=== PATIENT | female | born 1995 | race American Indian/Alaskan Native ===

== ENCOUNTER 2016-12-15 20:47 | Emergency (ER) | payer MEDICAID ==
[2016-12-15] MEDS ORDERED: Sodium Chloride 0.9% 1,000 ML IV SCH (21:30)
[2016-12-15] MEDS ORDERED: Ondansetron 4 MG/2 ML SDV IV ONE (21:30)
--- NOTE | 2016-12-15 21:43 | EDM.PDOC ---
ED HPI GI/ABDOMINAL - General Chief Complaint: Abdominal Pain Stated Complaint: GALLBLADDER Time Seen by Provider: 12/15/16 21:00 Source of Information: Reports: Patient History Limitations: Reports: No limitations - History of Present Illness INITIAL COMMENTS - FREE TEXT/NARRATIVE: c/o lower abdominal pain since 4 pm, vomited x5. pain radiates through to low back. Timing/Duration: Reports: Hour(s): Location: flank Quality: Reports: stabbing, radiating Severity: moderate Associated Symptoms (-Female): Reports: back pain, nausea/vomiting. Denies: constipation, diarrhea, fever/chills, loss of appetite - Related Data Allergies/ADRs: Allergies Allergy/AdvReac Type Severity Reaction Status Date / Time No Known Allergies Allergy Verified 12/15/16 21:06 Home Meds: Home Meds Omeprazole 20 mg PO BID 05/21/16 [History] Ferrous Sulfate [Feosol] 325 mg PO DAILY 10/22/16 [History] Vits #93/Iron Fum/FA [ Formula Tablet] 1 tab PO DAILY 10/22/16 [History] Ranitidine [Zantac] 150 mg PO BID 10/22/16 [History] Past Medical History - Past Health History Medical/Surgical History: Denies Medical/Surgical History HEENT History: Reports: Impaired vision, Other (see below) Other HEENT History: WEARS CORRECTIVE LENS Cardiovascular History: Reports: None Respiratory History: Reports: None Gastrointestinal History: Reports: Cholelithiasis, Gastritis, GERD, Other (see below) Other Gastrointestinal History: Ulcer Genitourinary History: Reports: None 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: Musculoskeletal History: Reports: Back pain, chronic Neurological History: Reports: None Psychiatric History: Reports: Anxiety Endocrine/Metabolic History: Reports: None Hematologic History: Reports: Anemia Immunologic History: Reports: None Oncologic (Cancer) History: Reports: None Dermatologic History: Reports: None - Infectious Disease History Infectious Disease History: Reports: Chicken pox - Past Surgical History Head Surgeries/Procedures: Reports: None HEENT Surgical History: Reports: None Cardiovascular Surgical History: Reports: None Respiratory Surgical History: Reports: None GI Surgical History: Reports: None Female Surgical History: Reports: None Endocrine Surgical History: Reports: None Neurological Surgical History: Reports: None Musculoskeletal Surgical History: Reports: None Oncologic Surgical History: Reports: None Dermatological Surgical History: Reports: None Social & Family History - Family History Family Medical History: Noncontributory - Tobacco Use Smoking Status *Q: Never Smoker Second Hand Smoke Exposure: Yes - Caffeine Use Caffeine Use: Reports: Tea Other Caffeine Use: VITMAIN WATER 1 OCCASIONALLY - Alcohol Use Days Per Week of Alcohol Use: 0 - Recreational Drug Use Recreational Drug Use: No ED ROS GENERAL - Review of Systems Review Of Systems: See Below Constitutional: Denies: fever, chills HEENT: Reports: No symptoms Respiratory: Reports: No Symptoms Cardiovascular: Reports: No symptoms GI/Abdominal: Reports: Abdominal pain, Nausea, Vomiting. Denies: Distension : Reports: flank pain, incontinence. Denies: pain Musculoskeletal: Reports: no symptoms Skin: Reports: no symptoms Neurological: Reports: No Symptoms ED EXAM, GI/ABD - Physical Exam Exam: See Below Exam Limited By: No limitations General Appearance: alert, moderate distress Eyes: bilateral: EOMI Ears: normal external exam, normal TMs Nose: normal inspection Throat/Mouth: Normal inspection, Normal voice Head: atraumatic, normocephalic Neck: normal inspection, full range of motion Respiratory/Chest: no respiratory distress, lungs clear, normal breath sounds Cardiovascular: normal peripheral pulses, regular rate, rhythm GI/Abdominal: normal bowel sounds, soft, no distention, tenderness (generalized mid to low.). No: guarding, rebound, McBurney's sign, Ivy's sign Back Exam: CVA tenderness (L), CVA tenderness (R). No: vertebral tenderness Extremities: normal inspection Neurological: alert, oriented, normal cognition Psychiatric: normal affect Skin Exam: Warm, Dry, Intact Course - Vital Signs Last Recorded V/S: Last Vital Signs Temp 96 F 12/16/16 00:59 Pulse 70 12/16/16 00:59 Resp 18 12/16/16 00:59 BP 129/98 H 12/16/16 00:59 Pulse Ox 100 12/16/16 00:59 - Orders/Labs/Meds Labs: Laboratory Tests 12/15/16 12/15/16 12/15/16 Range/Units 21:07 21:07 21:07 WBC (5.0-10.0) 10^3/uL RBC (4.2-5.4) 10^6/uL Hgb (12.0-16.0) g/dL Hct (37.0-47.0) % MCV (80-100) fL MCH (27.0-34.0) pg MCHC (33.0-35.0) g/dL Plt Count (150-450) 10^3/uL Neut % (Auto) (42.2-75.2) % Lymph % (Auto) (20.5-50.1) % [place] % (Auto) (2-8) % Eos % (Auto) (1.0-3.0) % Baso % (Auto) (0.0-1.0) % Sodium (135-145) mmol/L Potassium (3.6-5.0) mmol/L Chloride (101-111) mmol/L Carbon Dioxide (21.0-31.0) mmol/L Anion Gap BUN (7-18) mg/dL Creatinine (0.6-1.3) mg/dL Est Cr Clr Drug Dosing mL/min Estimated GFR (MDRD) BUN/Creatinine Ratio Glucose (74-105) mg/dL Calcium (8.4-10.2) mg/dl Total Bilirubin (0.2-1.0) mg/dL AST (10-42) IU/L ALT (10-60) IU/L Alkaline Phosphatase (42-121) IU/L C-Reactive Protein (0.0-1.3) mg/dL Total Protein (6.7-8.2) g/dl Albumin (3.2-5.5) g/dl Globulin Albumin/Globulin Ratio Amylase (28-100) U/L Lipase (22-51) U/L Urine Color Yellow (YELLOW) Urine Appearance Clear (CLEAR) Urine pH 5.5 (5.0-9.0) Ur Specific [place] >= 1.030 (1.005-1.030) Urine Protein 100 H (NEGATIVE) Urine Glucose (UA) Negative (NEGATIVE) Urine Ketones Negative (NEGATIVE) Urine Occult Blood Moderate H (NEGATIVE) Urine Nitrite Negative (NEGATIVE) Urine Bilirubin Small H (NEGATIVE) Urine Urobilinogen 1.0 (0.2-1.0) mg/dL Ur Leukocyte Esterase Moderate H (NEGATIVE) Urine RBC 20-30 H /HPF Urine WBC >100 H (0-5/HPF) /HPF Ur Epithelial Cells Many H /HPF Urine Bacteria Many H (0-FEW/HPF) /HPF Urine Mucus Moderate H /LPF Urine HCG, Qual Negative Urine Opiates Screen Negative (NEGATIVE) Ur Oxycodone Screen Negative (NEGATIVE) Urine Methadone Screen Negative (NEGATIVE) Ur Barbiturates Screen Negative (NEGATIVE) U Tricyclic Antidepress Negative (NEGATIVE) Ur Phencyclidine Scrn Negative (NEGATIVE) Ur Amphetamine Screen Negative (NEGATIVE) U Methamphetamines Scrn Negative (NEGATIVE) Urine MDMA Screen Negative (NEGATIVE) U Benzodiazepines Scrn Negative (NEGATIVE) Urine Cocaine Screen Negative (NEGATIVE) U Marijuana (THC) Screen Negative (NEGATIVE) 12/15/16 12/15/16 12/15/16 Range/Units 21:24 21:24 21:24 WBC 11.0 H (5.0-10.0) 10^3/uL RBC 4.38 (4.2-5.4) 10^6/uL Hgb 11.5 L (12.0-16.0) g/dL Hct 35.8 L (37.0-47.0) % MCV 81.7 (80-100) fL MCH 26.3 L (27.0-34.0) pg MCHC 32.1 L (33.0-35.0) g/dL Plt Count 329 (150-450) 10^3/uL Neut % (Auto) 78.7 H (42.2-75.2) % Lymph % (Auto) 13.5 L (20.5-50.1) % [place] % (Auto) 7.7 (2-8) % Eos % (Auto) 0.0 L (1.0-3.0) % Baso % (Auto) 0.1 (0.0-1.0) % Sodium 136 (135-145) mmol/L Potassium 3.5 L (3.6-5.0) mmol/L Chloride 105 (101-111) mmol/L Carbon Dioxide 23.0 (21.0-31.0) mmol/L Anion Gap 11.5 BUN 13 (7-18) mg/dL Creatinine 0.6 (0.6-1.3) mg/dL Est Cr Clr Drug Dosing 127.00 mL/min Estimated GFR (MDRD) > 60 BUN/Creatinine Ratio 21.66 Glucose 102 (74-105) mg/dL Calcium 8.8 (8.4-10.2) mg/dl Total Bilirubin 0.4 (0.2-1.0) mg/dL AST 15 (10-42) IU/L ALT 14 (10-60) IU/L Alkaline Phosphatase 77 (42-121) IU/L C-Reactive Protein 1.4 H (0.0-1.3) mg/dL Total Protein 8.4 H (6.7-8.2) g/dl Albumin 4.2 (3.2-5.5) g/dl Globulin 4.2 Albumin/Globulin Ratio 1.00 Amylase 56 (28-100) U/L Lipase 25 (22-51) U/L Urine Color (YELLOW) Urine Appearance (CLEAR) Urine pH (5.0-9.0) Ur Specific [place] (1.005-1.030) Urine Protein (NEGATIVE) Urine Glucose (UA) (NEGATIVE) Urine Ketones (NEGATIVE) Urine Occult Blood (NEGATIVE) Urine Nitrite (NEGATIVE) Urine Bilirubin (NEGATIVE) Urine Urobilinogen (0.2-1.0) mg/dL Ur Leukocyte Esterase (NEGATIVE) Urine RBC /HPF Urine WBC (0-5/HPF) /HPF Ur Epithelial Cells /HPF Urine Bacteria (0-FEW/HPF) /HPF Urine Mucus /LPF Urine HCG, Qual Urine Opiates Screen (NEGATIVE) Ur Oxycodone Screen (NEGATIVE) Urine Methadone Screen (NEGATIVE) Ur Barbiturates Screen (NEGATIVE) U Tricyclic Antidepress (NEGATIVE) Ur Phencyclidine Scrn (NEGATIVE) Ur Amphetamine Screen (NEGATIVE) U Methamphetamines Scrn (NEGATIVE) Urine MDMA Screen (NEGATIVE) U Benzodiazepines Scrn (NEGATIVE) Urine Cocaine Screen (NEGATIVE) U Marijuana (THC) Screen (NEGATIVE) Meds: Medications Discontinued Medications Generic Name Dose Route Start Last Admin Trade Name Aldo PRN Reason Stop Dose Admin Hydrocodone Bitart/Acetaminophen Confirm 12/15/16 23:58 12/16/16 00:05 [place] 325-10 Mg Administered 12/15/16 23:59 Not Given Dose 2 tab .ROUTE .STK-MED ONE Sodium Chloride 1,000 mls @ 999 mls/hr 12/15/16 21:30 12/15/16 21:35 Normal Saline IV 999 mls/hr ASDIRECTED ESTEVAN Administration Ceftriaxone Sodium 1 gm/ 50 mls @ 100 mls/hr 12/15/16 22:44 12/15/16 22:54 Sodium Chloride IV 12/15/16 23:13 100 mls/hr ONETIME ONE Administration Iopamidol 75 ml 12/15/16 22:06 12/15/16 22:43 Isovue-300 (61%) IVPUSH 12/15/16 22:07 75 ml ONETIME ONE Administration Ketorolac Tromethamine 30 mg 12/15/16 23:48 12/16/16 00:01 Toradol IVPUSH 12/15/16 23:49 30 mg ONETIME ONE Administration Ondansetron HCl 4 mg 12/15/16 21:30 12/15/16 21:35 Zofran IV 12/15/16 21:31 4 mg ONETIME ONE Administration Departure - Departure Time of Disposition: 23:45 Disposition: Home, Self-Care 01 Condition: good Clinical Impression: Pyelonephritis Instructions: Pyelonephritis, Adult, [id number] Forms: ED Department Discharge Additional Instructions: increase fluid intake hydrocodone 10/325 one every 6 hours as needed for severe pain tonight, tomorrow alternate tylenol 650mg with ibuprofen 600mg every 4 hours as needed cipro 500mg twice daily for one week recheck at clinic on Wednesday
[2016-12-15] MEDS ORDERED: Iopamidol 612 MG/ML 75 ML Bottle IVPUSH ONE (22:06)
[2016-12-15 22:07] LABS: CHLORIDE,CL 105 mmol/L (101-111); SODIUM,NA 136 mmol/L (135-145)
[2016-12-15] MEDS ORDERED: cefTRIAXone 1 GM in Sodium Chloride 0.9% 50 ML IV ONE (22:44)
[2016-12-15] MEDS ORDERED: Ketorolac 30 MG/ML SDV IVPUSH ONE (23:48)
[2016-12-15] MEDS ORDERED: Acetaminophen/HYDROcodone 325-10 MG Tab ONE (23:58)
[2016-12-15] MEDS ORDERED: Acetaminophen/HYDROcodone 325-10 MG Tab PO ONE (23:58)
[2016-12-16 01:02] VITALS: BP 129/98
== END 2016-12-16 00:59 | disposition home or self-care (01) ==
LOC: DL.ED 20:47
DX: N12 Tubulo-interstitial nephritis, not specified as acute or chronic (principal); K21.9 Gastro-esophageal reflux disease without esophagitis; F41.9 Anxiety disorder, unspecified; D64.9 Anemia, unspecified; Z79.899 Other long term (current) drug therapy
CPT/HCPCS: 36415; 74177; 80053; 80305; 81001; 81025; 82150; 83690; 85025; 86140; 96365; 96367; 96375; 99284; A9270; J0696; J1885; J2405; J7030; J7050; Q9967

== ENCOUNTER 2017-01-03 13:48 | Emergency (ER) | payer MEDICAID ==
--- NOTE | 2017-01-03 17:29 | EDM.PDOC ---
ED HPI GI/ABDOMINAL - General Chief Complaint: Gastrointestinal Problem Stated Complaint: [id number] GALLSTONE ATTACK Time Seen by Provider: 01/03/17 17:20 Source of Information: Reports: Patient History Limitations: Reports: No limitations - History of Present Illness INITIAL COMMENTS - FREE TEXT/NARRATIVE: She had some noodle with sprinkles of Parmegian cheese at 10 am. Epigastic abdominal pain began at about noon. Nausea with the pain. Vomited in the waiting room. Says she has had a gall bladder ultrasound 2 months ago at [place]. History of recurrent epigastric abdominal pain which usually resolves in 20 minutes. Pain radiates into the mid thoracic back. No fever. Similar to pain in the past. Pain today started after eating noodles with parmesian cheese sprinkled on top about 10 am and pain began shortly after eating; the pain has persisted. Quality: Reports: stabbing Severity: moderate Improves with: Reports: other (nothing) Associated Symptoms (-Female): Reports: back pain, nausea/vomiting. 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) (none) - Related Data Allergies/ADRs: Allergies Allergy/AdvReac Type Severity Reaction Status Date / Time No Known Allergies Allergy Verified 01/03/17 14:31 Home Meds: Home Meds Omeprazole 20 mg PO BID 05/21/16 [History] Ferrous Sulfate [Feosol] 325 mg PO DAILY 10/22/16 [History] Vits #93/Iron Fum/FA [ Formula Tablet] 1 tab PO DAILY 10/22/16 [History] Ranitidine [Zantac] 150 mg PO BID 10/22/16 [History] Past Medical History - Past Health History Medical/Surgical History: Denies Medical/Surgical History HEENT History: Reports: Impaired vision, Other (see below) Other HEENT History: WEARS CORRECTIVE LENS Cardiovascular History: Reports: None Respiratory History: Reports: None Gastrointestinal History: Reports: Cholelithiasis, Gastritis, GERD, Other (see below) Other Gastrointestinal History: Ulcer Genitourinary History: Reports: None 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: Musculoskeletal History: Reports: Back pain, chronic Neurological History: Reports: None Psychiatric History: Reports: Anxiety Endocrine/Metabolic History: Reports: None Hematologic History: Reports: Anemia Immunologic History: Reports: None Oncologic (Cancer) History: Reports: None Dermatologic History: Reports: None - Infectious Disease History Infectious Disease History: Reports: Chicken pox - Past Surgical History Head Surgeries/Procedures: Reports: None HEENT Surgical History: Reports: None Cardiovascular Surgical History: Reports: None Respiratory Surgical History: Reports: None GI Surgical History: Reports: None Female Surgical History: Reports: None Endocrine Surgical History: Reports: None Neurological Surgical History: Reports: None Musculoskeletal Surgical History: Reports: None Oncologic Surgical History: Reports: None Dermatological Surgical History: Reports: None Social & Family History - Family History Family Medical History: Noncontributory - Tobacco Use Smoking Status *Q: Never Smoker Second Hand Smoke Exposure: No - Caffeine Use Caffeine Use: Reports: None Other Caffeine Use: VITMAIN WATER 1 OCCASIONALLY - Alcohol Use Days Per Week of Alcohol Use: 0 - Recreational Drug Use Recreational Drug Use: No ED ROS GENERAL - Review of Systems Review Of Systems: See Below Constitutional: Reports: no symptoms HEENT: Reports: No symptoms Respiratory: Reports: No Symptoms Cardiovascular: Reports: No symptoms GI/Abdominal: Reports: Abdominal pain. Denies: Difficulty swallowing, Hematemesis : Reports: no symptoms Musculoskeletal: Reports: back pain Skin: Reports: no symptoms ED EXAM, GI/ABD - Physical Exam Exam: See Below Exam Limited By: No limitations General Appearance: alert, WD/WN, no apparent distress Eyes: bilateral: normal appearance Ears: normal external exam Nose: normal inspection Throat/Mouth: Normal inspection Head: atraumatic, normocephalic Neck: normal inspection, supple, non-tender, full range of motion Respiratory/Chest: no respiratory distress, lungs clear, normal breath sounds, chest non-tender Cardiovascular: regular rate, rhythm, no edema GI/Abdominal: no organomegaly. No: non tender Back Exam: other (tender at muscle of thoracolumbar back) Extremities: normal inspection, normal range of motion, non-tender, normal capillary refill, no pedal edema Neurological: oriented, CN II-XII intact, normal cognition Course - Vital Signs Last Recorded V/S: Last Vital Signs Temp 98.3 F 01/03/17 18:02 Pulse 60 01/03/17 18:02 Resp 16 01/03/17 18:02 BP 94/52 L 01/03/17 18:02 Pulse Ox 99 01/03/17 18:02 - Orders/Labs/Meds Orders: Active Orders 24 hr Category Date Time Status Peripheral IV Care [RC] . DIRECTED Care 01/03/17 17:44 Active Sodium Chloride 0.9% [Normal Saline] 1,000 ml Med 01/03/17 17:45 Active IV ASDIRECTED Sodium Chloride 0.9% [Saline Flush] Med 01/03/17 17:44 Active 10 ml FLUSH ASDIRECTED PRN Peripheral IV Insertion Adult [OM.PC] Routine Oth 01/03/17 17:44 Ordered Medication Orders Sodium Chloride (Normal Saline) 1,000 mls @ 500 mls/hr IV ASDIRECTED ESTEVAN Last Admin: 01/03/17 18:00 Dose: 500 mls/hr Sodium Chloride (Saline Flush) 10 ml FLUSH ASDIRECTED PRN PRN Reason: Keep Vein Open Last Admin: 01/03/17 17:59 Dose: 10 ml Labs: Laboratory Tests 01/03/17 01/03/17 Range/Units 17:50 17:50 WBC 14.2 H (5.0-10.0) 10^3/uL RBC 4.25 (4.2-5.4) 10^6/uL Hgb 10.9 L (12.0-16.0) g/dL Hct 34.2 L (37.0-47.0) % MCV 80.5 (80-100) fL MCH 25.6 L (27.0-34.0) pg MCHC 31.9 L (33.0-35.0) g/dL Plt Count 357 (150-450) 10^3/uL Neut % (Auto) 89.7 H (42.2-75.2) % Lymph % (Auto) 6.4 L (20.5-50.1) % [place] % (Auto) 3.8 (2-8) % Eos % (Auto) 0.0 L (1.0-3.0) % Baso % (Auto) 0.1 (0.0-1.0) % Sodium 137 (135-145) mmol/L Potassium 3.9 (3.6-5.0) mmol/L Chloride 103 (101-111) mmol/L Carbon Dioxide 27.0 (21.0-31.0) mmol/L Anion Gap 10.9 BUN 12 (7-18) mg/dL Creatinine 0.5 L (0.6-1.3) mg/dL Est Cr Clr Drug Dosing 152.40 mL/min Estimated GFR (MDRD) > 60 BUN/Creatinine Ratio 24.00 Glucose 100 (74-105) mg/dL Calcium 9.2 (8.4-10.2) mg/dl Total Bilirubin 1.3 H (0.2-1.0) mg/dL AST 229 H (10-42) IU/L ALT 122 H (10-60) IU/L Alkaline Phosphatase 98 (42-121) IU/L Total Protein 7.9 (6.7-8.2) g/dl Albumin 3.9 (3.2-5.5) g/dl Globulin 4.0 Albumin/Globulin Ratio 0.98 Lipase 19 L (22-51) U/L Meds: Medications Generic Name Dose Route Start Last Admin Trade Name Freq PRN Reason Stop Dose Admin Sodium Chloride 1,000 mls @ 500 mls/hr 01/03/17 17:45 01/03/17 18:00 Normal Saline IV 500 mls/hr ASDIRECTED ESTEVAN Administration Sodium Chloride 10 ml 01/03/17 17:44 01/03/17 17:59 Saline Flush FLUSH 10 ml ASDIRECTED PRN Administration Keep Vein Open Departure - Departure Time of Disposition: 18:52 Disposition: DC/[facility] to [facility] 02 Condition: good Clinical Impression: Cholecystitis Forms: Interfacility Transfer EMTALA - My Orders Last 24 Hours: My Active Orders 01/03/17 17:44 Peripheral IV Care [RC] . DIRECTED Sodium Chloride 0.9% [Saline Flush] 10 ml FLUSH ASDIRECTED PRN Peripheral IV Insertion Adult [OM.PC] Routine 01/03/17 17:45 Sodium Chloride 0.9% [Normal Saline] 1,000 ml IV ASDIRECTED - Assessment/Plan Last 24 Hours: My Active Orders 01/03/17 17:44 Peripheral IV Care [RC] . DIRECTED Sodium Chloride 0.9% [Saline Flush] 10 ml FLUSH ASDIRECTED PRN Peripheral IV Insertion Adult [OM.PC] Routine 01/03/17 17:45 Sodium Chloride 0.9% [Normal Saline] 1,000 ml IV ASDIRECTED
[2017-01-03] MEDS ORDERED: Sodium Chloride 0.9% 10 ML Syringe FLUSH PRN (17:44)
[2017-01-03] MEDS ORDERED: Sodium Chloride 0.9% 1,000 ML IV SCH (17:45)
[2017-01-03 18:07] VITALS: BP 94/52
[2017-01-03 18:17] LABS: CHLORIDE,CL 103 mmol/L (101-111); SODIUM,NA 137 mmol/L (135-145)
== END 2017-01-03 19:32 ==
LOC: DL.ED 13:48
DX: K81.9 Cholecystitis, unspecified (principal); K21.9 Gastro-esophageal reflux disease without esophagitis; D64.9 Anemia, unspecified; Z79.899 Other long term (current) drug therapy
CPT/HCPCS: 36415; 80053; 83690; 85025; 96360; 99284; J7030; J7050

== ENCOUNTER 2019-10-12 02:06 | Inpatient (IN) | payer MEDICAID ==
[2019-10-12] MEDS ORDERED: Sodium Chloride 0.9% 10 ML Syringe FLUSH PRN ×2 (03:02→09:21)
[2019-10-12] MEDS ORDERED: Tranexamic Acid 1,000 MG in Sodium Chloride 0.9% 100 ML IV PRN (03:08)
[2019-10-12] MEDS ORDERED: Acetaminophen 325 MG Tab PO PRN ×2 (03:08→09:21)
[2019-10-12] MEDS ORDERED: Misoprostol 400 MCG (4 X 100 MCG TAB) RECTAL PRN (03:08)
[2019-10-12] MEDS ORDERED: Ondansetron 4 MG/2 ML SDV IVPUSH PRN (03:08)
[2019-10-12] MEDS ORDERED: Lactated Ringers 1,000 ML IV ONE (03:08)
[2019-10-12] MEDS ORDERED: Carboprost Tromethamine 250 MCG/1 ML Amp IM PRN (03:08)
[2019-10-12] MEDS ORDERED: Lidocaine 1% 30 ML SDV INJECT PRN (03:08)
[2019-10-12] MEDS ORDERED: Methylergonovine 0.2 MG/1 ML Amp IM PRN (03:08)
[2019-10-12] MEDS ORDERED: fentaNYL 100 MCG/2 ML SDV IVPUSH ONE (03:11)
[2019-10-12] MEDS ORDERED: Oxytocin/Normal Saline 30 UNIT/500 ML BAG IV SCH (03:15)
[2019-10-12] MEDS ORDERED: Lactated Ringers 1,000 ML IV SCH (03:15)
--- NOTE | 2019-10-12 03:32 | PCM.SN ---
- Free Text/Narrative Note: OB History and Physical 10/12/19 Chief Complaint: contractions HPI: Opal is a 24 yo at 38w4d EGA, based on a 19w4d US, who presents for contractions and back pain which started around 1800. They have been getting stronger and more frequent since that time. She reports active movement. No bleeding or leaking of fluid. She feels like it is labor pains. ROS: Negative for headache, nausea, vomiting, diarrhea, fever, chills, hematuria , dysuria, contractions, loss of fluid or bleeding per vagina. Allergies: percocet - hives Medications: PNV Medical Hx: limited care Surgical Hx: ERCP x2 and cholecystectomy Family Hx: mom had diabetes, dad had a heart attack OB Hx: first delivery was vaginal at 34w with PPROM, second delivery was term vaginal Social Hx: FOB is Zhou who is not involved Labs: Blood Type: O Positive Rubella: Immune HBSAg: Nonreactive GBS: Negative Gonorrhea/Chlamydia: Negative HIV: Nonreactive RPR: Nonreactive Hep C: Nonreactive Physical Exam: Vitals: BP 140/90, HR 76, SpO2 95%, Temp 97.1 Gen: No distress CV: Well-perfused, 2+ distal pulses, regular rate and rhythm, no audible murmurs Resp: Non-labored, symmetrical chest expansion, clear to auscultation Abd: gravid, soft, non tender Ext: Moves all extremities, no edema. SVE: 5/50/-1 FHT: 140, moderate variability, accelerations present, no decelerations noted CTX: Q 2-4 minutes Assessment: Opal is a 24 yo at 38w4d EGA, based on a 19w4d US, who presents for contractions. Cat I Strip. Limited care h/o delivery Plan: - admit to labor and delivery for observation - routine cares - encouraged walking - will follow closely Selina Davis MD
[2019-10-12] MEDS ORDERED: Simethicone 80 MG Tab.Chew PO PRN (09:21)
[2019-10-12] MEDS ORDERED: Benzocaine/Menthol 20%-0.5% Spray 56 GM Canister TOP PRN (09:21)
[2019-10-12] MEDS ORDERED: Oxytocin 10 Units/1 ML SDV IM PRN (09:21)
[2019-10-12] MEDS: Prenatal Multivitamin with Calcium/Folic Acid/Iron Tab PO SCH (11:10)
[2019-10-12] MEDS: Ibuprofen 800 MG Tab PO PRN ×2 (11:10→19:30)
[2019-10-12] MEDS ORDERED: Measles, Mumps & Rubella Vaccine 0.5 ML SDV SUBCUT ONE (11:48)
[2019-10-12] MEDS ORDERED: Diphtheria,Pertussis(Acell),Tetanus Vaccine 0.5 ML SDV IM ONE (11:48)
--- NOTE | 2019-10-12 15:33 | PCM.DEL ---
L & D Note - General Info Date of Service: 10/12/19 (0559) - Delivery Note Labor: Spontaneous Delivery Outcome: Livebirth Infant Delivery Method: Spontaneous Vaginal Delivery-Single Delivery Mode: Spontaneous Presentation: Right Occiput Anterior (ANYI) Anesthesia Type: None Episiotomy Type: None Laceration: None Placenta: Intact, Spontaneous Cord: 3 Vessels Estimated Blood Loss: 100 Score 1 min: 8 Score 5 min: 9 Second Stage Interventions: Reports: Pushing Effectively Delivery Comments (Free Text/Narrative):: Opal is a 24 yo at 38w4d who presented with active labor around 0300. Category 1tracing upon admission. She was dilated to 5 cm upon admission. She progressed without augmentation, without pain medications. Spontaneous rupture of membranes at 0559 with clear fluid. She was complete at 0554. She began pushing at approximately 0559. Delivered a liveborn female infant. Vigorous infant with spontaneous cry. Apgars of 8 and 9. weight 3190 g. Placenta delivered spontaneously intact with a 3 vessel cord. IV Pitocin was started shortly after delivery of the placenta. EBL 100 mL. First degree perineal laceration, well approximated, not actively bleeding, not repaired. Hemostasis confirmed. Mother and infant doing well. - General Info Date of Service: 10/12/19 - Patient Data Weight - Most Recent: 99.79 kg - Problem List Review Problem List Initiated/Reviewed/Updated: Yes - Plan Plan:: Plan: - routine cares - encouraged maternal bonding with baby - will follow closely Selina Davis MD
[2019-10-12] MEDS: Docusate Sodium 100 MG Cap PO PRN (19:30)
--- NOTE | 2019-10-13 08:04 | PCM.SN ---
- Free Text/Narrative Note: Progress Note/Discharge Summary Admit date: 10/12/19 Discharge date: 10/13/19 Delivering Physician: Dr. Davis Discharging Physician: Dr. Davis Admission Diagnoses: 24 yo at 38w4d EGA, based on a 19w4d Cat I Strip Active labor Limited care h/o delivery previous Anemia Summary of Hospital Course: Opal is a 24 yo at 38w4d who presented with active labor around 0300. Category 1tracing upon admission. She was dilated to 5 cm upon admission. She progressed without augmentation, without pain medications. Spontaneous rupture of membranes at 0559 with clear fluid. She was complete at 0554. She began pushing at approximately 0559. Delivered a liveborn female . Vigorous infant with spontaneous cry. Apgars of 8 and 9. weight 3190 g. Placenta delivered spontaneously intact with a 3 vessel cord. IV Pitocin was started shortly after delivery of the placenta. EBL 100 mL. First degree perineal laceration, well approximated, not actively bleeding, not repaired. Hemostasis confirmed. Mother and doing well. The patient had an unremarkable course. By day 1, the patient was doing well; ambulating, voiding, and tolerating general diet. Her pain was well controlled with oral pain medications, and was she was discharged to home. Admission hemoglobin was 10.8 gm/dL. Discharge Exam: Gen: No distress CV: Well-perfused, 2+ distal pulses Resp: Non-Labored, symmetrical chest expansion Abd: Fundus is firm and below umbilicus. Ext: Moves all extremities well, no edema. Discharge (or Final) Diagnoses: 24 yo at 38w4d EGA, based on a 19w4d Normal Spontaneous Vaginal Delivery Limited care Chronic anemia, worsened by h/o delivery previous Discharge Details: Admission Condition: good Discharged Condition: good Disposition: Home Discharge Medications: over the counter ibuprofen Diet: regular diet Activity: no heavy lifting for 2 weeks, pelvic rest for 6 weeks. Follow-up with Dr. Davis in 6-8 weeks for visit. Selina Davis MD
[2019-10-13] MEDS: Docusate Sodium 100 MG Cap PO PRN (08:18)
[2019-10-13] MEDS: Prenatal Multivitamin with Calcium/Folic Acid/Iron Tab PO SCH (08:18)
[2019-10-13] MEDS: Ibuprofen 800 MG Tab PO PRN (08:18)
[2019-10-13 08:24] VITALS: BP 125/72; PULSE 74
== END 2019-10-13 11:30 | disposition home or self-care (01) | DRG 807 ==
LOC: DL.OBCHECK 02:06 → DL.OB 02:57 → OBSVTOIN 05:59
PROVIDERS: ADMIT Family Medicine; ATTEND Family Medicine
PROC: 10E0XZZ Delivery of Products of Conception, External Approach (ICD-10-PCS; principal; 2019-10-12)
PROC: 3E0234Z Introduction of Serum, Toxoid and Vaccine into Muscle, Percutaneous Approach (ICD-10-PCS; 2019-10-12)
DX: O99.02 Anemia complicating childbirth (principal); Z37.0 Single live birth; D64.9 Anemia, unspecified; O70.0 First degree perineal laceration during delivery; Z23 Encounter for immunization; Z3A.38 38 weeks gestation of pregnancy
CPT/HCPCS: 36415; 59409; 81001; 85027; 90471; 90707; 90715; A9270-GY; J2590; J7120